=== PATIENT | female | born 1955 | race Caucasian/White ===

== ENCOUNTER → 2018-10-25 | Outpatient (CLI) | payer OTHER ==
--- NOTE | 2018-10-25 11:43 | MM ---
Reason for exam: clinical finding. Last mammogram was performed 8 years and 7 months ago. History: Patient is postmenopausal and history of other cancer. Took unspecified hormones for 4 years beginning at age 46. Physical Findings: Nurse Summary: 2cm nodule in the left breast at 2 o'clock (nurse mj). [facility] Diagnostic Mammo w CAD PAUL Bilateral CC and MLO view(s) were taken. No prior studies available for comparison. There are scattered fibroglandular densities. There is no discrete abnormality at BB marked palpable. These results were verbally communicated with the patient and result sheet given to the patient on 10/15/18. ASSESSMENT: Incomplete: need additional imaging evaluation, BI-RAD 0 RECOMMENDATION: Ultrasound of the left breast.
--- NOTE | 2018-10-25 11:44 | USB ---
Reason for exam: additional evaluation requested from abnormal screening. History: Patient is postmenopausal and history of other cancer. Took unspecified hormones for 4 years beginning at age 46. US Breast Limited LT Left limited breast ultrasound including focal area of concern, retroareolar and axilla demonstrates a 0.3 x 0.2 x 0.3cm cystic lesion at 1 o'clock and a 0.3 x 0.3 x 0.3cm cystic lesion at 1 o'clock 7cm from nipple, has a septation. Do not correlate with palpable. These results were verbally communicated with the patient and result sheet given to the patient on 10/25/18. ASSESSMENT: Probably benign, BI-RAD 3 RECOMMENDATION: Ultrasound of the left breast in 6 months. Manage on a clinical basis with regard to palpable.
== END | disposition home or self-care (01) ==
LOC: RADMAMWWP 08:06
DX: N64.4 Mastodynia (principal); R92.8 Other abnormal and inconclusive findings on diagnostic imaging of breast
CPT/HCPCS: 77066

== ENCOUNTER → 2019-05-12 | Outpatient (CLI) | payer OTHER ==
--- NOTE | 2019-05-15 08:28 | USB ---
Reason for exam: follow-up at short interval from prior study. History: Patient is postmenopausal and history of other cancer. Took unspecified hormones for 4 years beginning at age 46. Physical Findings: Nurse did not find any significant physical abnormalities on exam. US Breast LT Left complete breast ultrasound includes all four quadrants, the retroareolar region and axilla. Finding demonstrates no cystic or solid lesion seen. No suspicious sonographic finding. These results were verbally communicated with the patient and result sheet given to the patient on 05/12/19. ASSESSMENT: Negative, BI-RAD 1 RECOMMENDATION: Routine screening mammogram of both breasts in 5 months. Back on schedule for September 2019.
== END | disposition home or self-care (01) ==
LOC: RADUSWWP 14:51
PROVIDERS: ATTEND Family Medicine
DX: R92.8 Other abnormal and inconclusive findings on diagnostic imaging of breast (principal)

== ENCOUNTER → 2023-07-29 | Outpatient (CLI) | payer MEDICARE ==
[~2023-07-29] MED LIST: REGADENOSON 0.4 MG/5 ML SYRINGE IV ONE
--- NOTE | 2023-07-29 11:42 | NM ---
EXAMINATION TYPE: NM stress cardiolite complete DATE OF EXAM: 07/29/2023 COMPARISON: NONE CLINICAL INDICATION: Female, 67 years old with history of I20.9 R06.09; TECHNIQUE: After the intravenous administration of 9.2 mCi Tc 99m Sestamibi - Rest images obtained 5 0 minutes post injection. The patient exercised using a ANEUDY protocol and 1 minute prior to peak e xercise was injected with 25.6 mCi Tc 99m Sestamibi - Stress images obtained 55 minutes post injectio n. FINDINGS: Targeted heart rate was achieved during performance of the study. Review of stress and rest SPECT ermelinda ges demonstrates no distinct perfusion abnormality. Gated analysis shows normal wall motion with an estimated left ventricular ejection fraction of 54 %. IMPRESSION: No scintigraphic evidence for reversible ischemia
--- NOTE | 2023-07-30 07:00 | CA ---
Lexiscan Nuclear Stress Test Report Name: Joyce Adam Exam Date: 07/29/2023 10:35 Exam Location: [place] Stress Ht (in): 66 Wt (lb): 170 BSA: 1.87 Ordering Phys: Arianna Powell DO Referring Phys: Khloe Mcgregor PAC Technologist: DAVID,, Age: 67 Gender: F : 1955 Procedure CPT: Indications: I20.9 R06.09 ICD-10 Codes: Patient History: Chest pain, short of breath and family history of heart disease. Medications: Meds past 24 hrs: Pretest Chest Pain: STRESS TEST Lexiscan Protocol Exercise Duration (min:sec): 02:[address] Depressions (mm): Angina Score: Snow Score: Resting HR (bpm): 64 Peak HR (bpm): 86 Resting BP (mmHg): 160 / 84 Peak BP (mmHg): 155 / 76 MPHR: 153 Target HR: 130 % MPHR: 56 METS: 1.0 Total Dose: Peak Dose: Atropine: Double Product: 51829 BP Response: Stress Termination: Infusion complete Stress Symptoms: No chest pain or symptoms Stress Summary: ECG ANALYSIS Resting ECG: Stress ECG: CONCLUSIONS None diagnostic electrocardiogram stress testing Dr. Bola Woodward MD (Electronically Signed) Final Date: 30 July 2023 06:59
== END | disposition home or self-care (01) ==
LOC: RADNMMAIN 07:59
PROVIDERS: ATTEND Family Medicine
DX: I20.9 Angina pectoris, unspecified (principal); R06.09 Other forms of dyspnea
CPT/HCPCS: 93017; 78452; A9500